=== PATIENT | male | born 1985 | race Caucasian/White ===

== ENCOUNTER 2022-10-25 19:01 | Emergency (ER) | payer MEDICAID ==
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
--- NOTE | 2022-10-25 20:54 | XRAY Report ---
PROCEDURE: Shoulder 3 View LT INDICATIONS: shoulder inj/pain TECHNIQUE: 3 views of the shoulder were acquired. COMPARISON: None. FINDINGS: Bones: No acute fractures or dislocations. There are postsurgical changes consistent with prior ORIF of a chronic fracture in the proximal humerus with a lateral fixation plate and multiple fixation sc rews. No suspicious bony lesions. Visualized ribs appear intact. Soft tissues: No suspicious soft tissue calcifications. IMPRESSION: 1. No acute fracture or dislocation. Reviewed by: Joshua Ferrari MD on 10/25/2022 8:53 PM PDT Approved by: Joshua Ferrari MD on 10/25/2022 8:53 PM PDT Station ID: [id number]
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
[2022-10-25 21:01] VITALS: BP 121/81
== END 2022-10-25 20:58 | disposition home or self-care (01) ==
LOC: ED 19:01
DX: G89.29 Other chronic pain (principal); M25.512 Pain in left shoulder; M25.531 Pain in right wrist
CPT/HCPCS: 99283; 99284

== ENCOUNTER 2022-10-26 01:31 | Outpatient (CLI) | payer MEDICAID | END 2022-10-26 01:32 | disposition critical access hospital (66) | LOC: EMS 01:31 | DX: Z04.6 Encounter for general psychiatric examination, requested by authority (principal); R45.851 Suicidal ideations | CPT/HCPCS: A0425; A0429; A0999 ==

== ENCOUNTER 2022-10-26 01:48 | Emergency (ER) | payer MEDICAID ==
--- NOTE | 2022-10-26 02:31 | ED Physician Documentation ---
History of Present Illness - Stated complaint Stated Complaint: SI,PTSD - Chief complaint Chief Complaint: MHE - History obtained from History obtained from: Patient - Additonal information Additional information: 37-year-old man presents by EMS from [facility] where he was rejected for admission tonight. They did not have a bed available and told him to check in tomorrow. Patient states he has no where to go. denies HI or AVH, endorses Passive SI but no plan. PD PAST MEDICAL HISTORY - Present Medications Home Medications: Ambulatory Orders Medication Instructions Recorded Confirmed No Known Home Medications 10/25/22 10/25/22 - Allergies Allergies/Adverse Reactions: Allergies Allergy/AdvReac Type Severity Reaction Status Date / Time Benzodiazepines AdvReac Unknown Verified 10/25/22 19:12 PD ED PE NORMAL - Vitals Vital signs reviewed: Yes - General General: Alert and oriented X 3, No acute distress, Well developed/nourished - HEENT HEENT: Atraumatic, PERRL, EOMI - Neck Neck: Supple, no meningeal sign - Cardiac Cardiac: RRR - Respiratory Respiratory: No respiratory distress, Clear bilaterally - Neuro Neuro: Alert and oriented X 3 - Psych Psych: Other (depressed mood and affect) Results - Vitals Vitals: Vital Signs - 24 hr 10/26/22 01:54 Temperature 36.8 C Heart Rate 89 Respiratory 16 Rate Blood Pressure 118/84 H O2 Saturation 98 Oxygen O2 Source Room air PD Medical Decision Making - ED course ED course: 37yM presents for MHE after being unable to go to [facility] overnight. They may have a bed tomorrow. patient endorsing passive SI and states he does not feel safe. MHE labs ordered and SW consult placed. plan to endorse to incoming daytime ED MD at 7am shift change. Departure - Departure Clinical Impression: Depression, Suicidal ideation Condition: Stable
[2022-10-26 03:19] LABS: BILIRUBIN,URINE NEGATIVE (NEGATIVE); GLUCOSE, URINE (UA) NEGATIVE (NEGATIVE); KETONES,URINE (UA) NEGATIVE (NEGATIVE); LEUKOCYTE ESTERASE, URINE NEGATIVE (NEGATIVE); MUDS CUTOFF CONCENTRATIONS CUTOFF CONC BELOW:; NITRITE,URINE NEGATIVE (NEGATIVE); OCCULT BLOOD,URINE NEGATIVE (NEGATIVE); PH,URINE 7.5 PH (5.0-7.5); PROTEIN,URINE TRACE mg/dL (NEGATIVE); UROBILINOGEN,URINE 0.2 (NORMAL) E.U./dL (NORMAL)
[2022-10-26 03:21] LABS: CLARITY,URINE CLEAR (CLEAR)
[2022-10-26 03:35] LABS: AMPHETAMINE SCREEN,URINE NEGATIVE (NEGATIVE); BARBITURATE SCREEN,UR NEGATIVE (NEGATIVE); BENZODIAZEPINES SCREEN, URINE NEGATIVE (NEGATIVE); COCAINE SCREEN URINE NEGATIVE (NEGATIVE); METHADONE SCREEN, URINE NEGATIVE (NEGATIVE); METHAMPHETAMINES SCREEN, URINE NEGATIVE (NEGATIVE); OPIATE SCREEN, URINE NEGATIVE (NEGATIVE); OXYCODONE SCREEN, URINE NEGATIVE (NEGATIVE); PROPOXYPHENE SCREEN, URINE NEGATIVE (NEGATIVE); THC CANNABINOID SCREEN, URINE NEGATIVE (NEGATIVE); TRICYCLIC ANTIDEPRESSANT,URINE NEGATIVE (NEGATIVE)
[2022-10-26 04:29] LABS: BASOPHILS % (AUTO) 0.5 %; EOSINOPHILS # (AUTO) 0.6 10^3/uL (0.0-0.7); EOSINOPHILS % (AUTO) 6.8 %; HCT - HEMATOCRIT 34.7 % (42.0-52.0); HGB - HEMOGLOBIN 11.7 g/dL (14.0-18.0); LYMPHOCYTES # (AUTO) 1.8 10^3/uL (1.5-3.5); LYMPHOCYTES % (AUTO) 21.4 %; MEAN CORPUSCULAR HEMOGLOBIN 31.5 pg (27.0-31.0); MEAN CORPUSCULAR HGB CONC 33.7 g/dL (32.0-36.0); MEAN CORPUSCULAR VOLUME 93.5 fL (80.0-94.0); MEAN PLATELET VOLUME 9.8 fL (7.4-11.4); MONOCYTES # (AUTO) 0.6 10^3/uL (0.0-1.0); MONOCYTES % (AUTO) 7.3 %; NEUTROPHILS # (AUTO) 5.3 10^3/uL (1.5-6.6); NEUTROPHILS % (AUTO) 63.9 %; PLT - PLATELET COUNT 285 10^3/uL (130-450); RED BLOOD COUNT 3.71 10^6/uL (4.70-6.10); RED CELL DISTRIBUTION WIDTH 13.2 % (12.0-15.0); WHITE BLOOD COUNT 8.4 x10^3/uL (4.8-10.8)
[2022-10-26 04:47] LABS: ACETAMINOPHEN < 10 ug/mL (10-30); ALBUMIN 3.9 g/dL (3.2-5.5); ALBUMIN/GLOBULIN RATIO 1.3 (1.0-2.2); ALKALINE PHOSPHATASE 102 IU/L (42-121); ALT ALANINE AMINOTRANSFERASE 20 IU/L (10-60); AST ASPARTATE AMINOTRANSFERASE 24 IU/L (10-42); BILIRUBIN,TOTAL 0.2 mg/dL (0.2-1.0); BUN - BLOOD UREA NITROGEN 20 mg/dL (6-20); CALCIUM 8.6 mg/dL (8.5-10.3); CARBON DIOXIDE - CO2 26 mmol/L (21-32); CHLORIDE 109 mmol/L (101-111); CK- CREATINE KINASE 230 IU/L (22-269); CREATININE 0.7 mg/dL (0.6-1.2); ETOH - ETHANOL < 5.0 mg/dL; GFR - MDRD 126 (>89); GLUCOSE 117 mg/dL (70-100); LIPASE 45 U/L (22-51); MAGNESIUM 2.4 mg/dL (1.7-2.8); POTASSIUM 3.3 mmol/L (3.5-5.0); SALICYLATE < 6.0 mg/dL; SODIUM 143 mmol/L (135-145)
--- NOTE | 2022-10-26 06:59 | ED Physician Documentation ---
ED Addendum - Addendum Addendum: 10/26/22 15:20 Patient received a signout from off going physician, please see their d ocumentation for further detail. All labs and imaging reviewed. Patient evaluated independently and found to be resting comfortably at bedside. Continues to endorse for suicidal ideation. Evaluated independently by telepsychiatry. Recommendation at this point is for initiation of the patient's Lexapro 10 mg with Zyprexa nightly. Orders placed. Patient accepted voluntary inpatient to [facility]. Transferred from our facility to [facility] for further evaluation and treatment.
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
[2022-10-26] MEDS ORDERED: ESCITALOPRAM 10 MG TABLET PO SCH (12:00)
[2022-10-26 17:21] VITALS: BP 122/80
[2022-10-26] MEDS ORDERED: OLANZapine ODT 5 MG TABLET TL SCH (21:00)
== END 2022-10-26 17:28 | disposition short-term general hospital (02) ==
LOC: EDUNIT# → ED 01:48
DX: R45.851 Suicidal ideations (principal); F32.A Depression, unspecified; Z59.01 Sheltered homelessness
CPT/HCPCS: 36415; 80053; 80306; 80307; 80320; 80329; 81003; 82550; 83690; 83735; 84443; 85025; 99284; 99285; A9270; G0425; Q3014; 81001; 87086